=== PATIENT | male | born 1995 | race Caucasian/White ===

== ENCOUNTER 2017-05-20 17:12 | Emergency (ER) | payer SELFPAY ==
[~2017-05-20] VITALS: Ht 180.3 cm; Wt 114.0 kg
[2017-05-20 17:13] VITALS: BP 145/75
[2017-05-20] MEDS ORDERED: LIDOCAINE 1%, 20ML ONE (17:56)
[2017-05-20] MEDS ORDERED: LIDOCAINE 2%, 20ML SQ ONE (18:00)
[2017-05-20] MEDS ORDERED: IBUPROFEN 200 MG TABLET ONE (18:35)
[2017-05-20] MEDS ORDERED: IBUPROFEN 200 MG TABLET PO ONE (19:00)
== END 2017-05-20 18:45 | disposition home or self-care (01) ==
LOC: ED 18:39
DX: L03.113 Cellulitis of right upper limb (principal); L02.413 Cutaneous abscess of right upper limb; F15.10 Other stimulant abuse, uncomplicated
CPT/HCPCS: 10060; 99283; J3490

== ENCOUNTER 2017-05-22 13:05 | Emergency (ER) | payer SELFPAY | END 2017-05-22 14:35 | disposition left against medical advice (07) | LOC: ED 14:29 | DX: Z53.21 Procedure and treatment not carried out due to patient leaving prior to being seen by health care provider (principal) ==

== ENCOUNTER 2017-05-23 22:58 | Emergency (ER) | payer SELFPAY ==
[~2017-05-23] VITALS: Ht 180.3 cm; Wt 110.0 kg
[2017-05-23 22:59] VITALS: BP 174/130
== END 2017-05-24 00:27 | disposition home or self-care (01) ==
LOC: ED 23:48
DX: L02.413 Cutaneous abscess of right upper limb (principal); L03.113 Cellulitis of right upper limb
CPT/HCPCS: 99283

== ENCOUNTER 2017-05-25 13:24 | Emergency (ER) | payer SELFPAY ==
[~2017-05-25] VITALS: Ht 180.3 cm; Wt 109.5 kg
[2017-05-25 13:28] VITALS: BP 161/108
== END 2017-05-25 14:36 | disposition home or self-care (01) ==
LOC: ED 14:30
DX: L03.113 Cellulitis of right upper limb (principal); F15.10 Other stimulant abuse, uncomplicated
CPT/HCPCS: 99283

== ENCOUNTER 2017-05-27 04:02 | Emergency (ER) | payer SELFPAY ==
[~2017-05-27] VITALS: Ht 180.3 cm; Wt 116.1 kg
[2017-05-27 04:03] VITALS: BP 170/119
== END 2017-05-27 04:55 | disposition home or self-care (01) ==
LOC: ED 04:16
DX: Z48.01 Encounter for change or removal of surgical wound dressing (principal)
CPT/HCPCS: 99281

== ENCOUNTER 2019-01-23 00:23 | Emergency (ER) | payer MEDICAID ==
[~2019-01-23] VITALS: Ht 182.9 cm; Wt 112.6 kg
[2019-01-23 00:26] VITALS: BP 156/91
== END 2019-01-23 01:13 | disposition home or self-care (01) ==
LOC: ED 01:08
DX: A60.01 Herpesviral infection of penis (principal)
CPT/HCPCS: 96372; 99283; J0696

== ENCOUNTER 2019-04-05 10:35 | Emergency (ER) | payer MEDICAID ==
[~2019-04-05] VITALS: Ht 182.9 cm; Wt 122.0 kg
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
== END 2019-04-05 11:25 ==
LOC: ED 11:15
DX: R23.8 Other skin changes (principal); F17.200 Nicotine dependence, unspecified, uncomplicated
CPT/HCPCS: 99283

== ENCOUNTER 2019-04-14 17:22 | Emergency (ER) | payer MEDICAID ==
[~2019-04-14] VITALS: Ht 182.9 cm; Wt 122.1 kg
[2019-04-14 17:24] VITALS: BP 146/90
== END 2019-04-14 18:30 | disposition home or self-care (01) ==
LOC: ED 18:15
DX: B37.42 Candidal balanitis (principal); F17.200 Nicotine dependence, unspecified, uncomplicated
CPT/HCPCS: 99282

== ENCOUNTER 2019-06-16 21:27 | Emergency (ER) | payer MEDICAID ==
[~2019-06-16] VITALS: Ht 185.4 cm; Wt 128.0 kg
[2019-06-16 21:41] VITALS: BP 146/83
--- NOTE | 2019-06-16 22:50 | NUR ---
PT CALLED FOR PIT. PT NOT IN LOBBY AT THIS TIME.
--- NOTE | 2019-06-16 23:34 | NUR ---
PT CALLED FOR ROOM. NIL.
--- NOTE | 2019-06-16 23:56 | NUR ---
NILX 3
== END 2019-06-16 23:57 | disposition left against medical advice (07) ==
LOC: ED 23:46
DX: R21 Rash and other nonspecific skin eruption (principal); Z53.21 Procedure and treatment not carried out due to patient leaving prior to being seen by health care provider

== ENCOUNTER 2019-06-22 16:41 | Emergency (ER) | payer MEDICAID ==
[~2019-06-22] VITALS: Ht 182.9 cm; Wt 127.8 kg
[2019-06-22 16:48] VITALS: BP 160/92
--- NOTE | 2019-06-22 17:11 | NUR ---
URETHERAL SWAB OBTAINED SENT TO LAB FOR ANALYSIS
--- NOTE | 2019-06-22 17:22 | NUR ---
MEDICATED PER EMAR
--- NOTE | 2019-06-22 17:22 | NUR ---
LAB AT BEDSIDE
[2019-06-22] MEDS ORDERED: CEFTRIAXONE 250 MG IM ONE (18:00)
[2019-06-22] MEDS ORDERED: AZITHROMYCIN 500 MG TABLET PO ONE (18:00)
[2019-06-22] MEDS ORDERED: CEFTRIAXONE 250 MG ONE (18:04)
[2019-06-22] MEDS ORDERED: LIDOCAINE-MPF 1%, 2ML ONE (18:04)
[2019-06-22] MEDS ORDERED: AZITHROMYCIN 500 MG TABLET ONE (18:04)
== END 2019-06-22 18:34 | disposition home or self-care (01) ==
LOC: ED 18:28
DX: N48.1 Balanitis (principal); B96.89 Other specified bacterial agents as the cause of diseases classified elsewhere; F17.200 Nicotine dependence, unspecified, uncomplicated
CPT/HCPCS: 36415; 86592; 87491; 87591; 96372; 99283; J0696; J7512

== ENCOUNTER 2019-07-28 23:11 | Emergency (ER) | payer MEDICAID ==
[~2019-07-28] VITALS: Ht 182.9 cm; Wt 140.0 kg
[2019-07-28 23:15] VITALS: BP 162/105
== END 2019-07-29 00:13 | disposition home or self-care (01) ==
LOC: ED 23:31
DX: L29.9 Pruritus, unspecified (principal); L24.9 Irritant contact dermatitis, unspecified cause; F17.200 Nicotine dependence, unspecified, uncomplicated
CPT/HCPCS: 99283

== ENCOUNTER 2019-12-20 18:18 | Emergency (ER) | payer MEDICAID ==
[~2019-12-20] VITALS: Ht 182.9 cm; Wt 140.3 kg
[2019-12-20 18:22] VITALS: BP 147/78
== END 2019-12-20 19:25 | disposition home or self-care (01) ==
LOC: ED 18:48
DX: B00.2 Herpesviral gingivostomatitis and pharyngotonsillitis (principal); F17.200 Nicotine dependence, unspecified, uncomplicated
CPT/HCPCS: 99283

== ENCOUNTER 2020-02-25 15:47 | Emergency (ER) | payer MEDICAID ==
[~2020-02-25] VITALS: Ht 195.6 cm; Wt 139.0 kg
--- NOTE | 2020-02-25 16:11 | NUR ---
COPYMAN: PT TO [facility]
[2020-02-25 17:03] LABS: BASOPHILS # (AUTO) 0.03 x10^3/uL (0-0.1); BASOPHILS % (AUTO) 0 % (0-1); EOSINOPHILS # (AUTO) 0.17 x10^3/uL (0-0.4); EOSINOPHILS % (AUTO) 2 % (1-7); LYMPHOCYTES # (AUTO) 2.32 x10^3/uL (1-3.4); LYMPHOCYTES % (AUTO) 22 % (22-44); MD NO; MEAN CORPUSCULAR HEMOGLOBIN 31.4 pg (27.5-34.5); MEAN CORPUSCULAR HGB CONC 33.3 g/dL (33.2-36.2); MEAN PLATELET VOLUME 8.1 fL (7.4-10.4); MONOCYTES # (AUTO) 0.44 x10^3/uL (0.2-0.8); MONOCYTES % (AUTO) 4 % (2-9); NEUTROPHILS # (AUTO) 7.51 x10^3/uL (1.8-6.8); NEUTROPHILS % (AUTO) 72 % (42-75); PLATELET COUNT 236 x10^3/uL (130-400); RED BLOOD COUNT 5.29 x10^6/uL (4.38-5.82); RED CELL DISTRIBUTION WIDTH 12.9 % (9.4-14.8)
[2020-02-25 17:05] VITALS: BP 123/79
--- NOTE | 2020-02-25 17:05 | NUR ---
PT UPRIGHT ON GURNEY AWAKE & COMFORTABLE, WATCHING TV, RESPONDS APPROP TO STAFF, COMFORT MEASURES PROVIDED, AT BS, CALL LIGHT WITHIN REACH.
[2020-02-25 17:14] LABS: ALBUMIN 3.7 g/dL (3.4-5.0); ANION GAP 4 mmol/L (5-15); CALCIUM 8.9 mg/dL (8.5-10.1); CHLORIDE 106 mmol/L (98-107); CREATININE 0.91 mg/dL (0.7-1.3)
[2020-02-25 17:19] LABS: MICROSCOPIC NOT IND
--- NOTE | 2020-02-25 18:01 | NUR ---
PT REMAINS UPRIGHT ON GURNEY AWAKE & COMFORTABLE, WATCHING TV/TEXTING ON PHONE, RESPONDS APPROP TO STAFF, COMFORT MEASURES PROVIDED, AT BS, CALL LIGHT WITHIN REACH.
--- NOTE | 2020-02-25 18:16 | NUR ---
Patient & spouse given discharge instructions and they have confirmed that they understand the instructions. Patient ambulatory with steady gait.
== END 2020-02-25 18:17 | disposition home or self-care (01) ==
LOC: ED 18:09
DX: R10.31 Right lower quadrant pain (principal); F17.210 Nicotine dependence, cigarettes, uncomplicated
CPT/HCPCS: 36415; 80048; 81003; 82040; 85025; 99283; 99406

== ENCOUNTER 2021-03-07 21:56 | Emergency (ER) | payer MEDICAID ==
[~2021-03-07] VITALS: Ht 180.3 cm; Wt 131.0 kg
[2021-03-07 22:06] VITALS: BP 159/113
--- NOTE | 2021-03-07 22:55 | NUR ---
not in lobby when called to room
--- NOTE | 2021-03-07 23:10 | NUR ---
not in lobby when called to room
--- NOTE | 2021-03-07 23:30 | NUR ---
pt not in lobby
== END 2021-03-07 23:32 | disposition left against medical advice (07) ==
LOC: ED 22:01
DX: K13.79 Other lesions of oral mucosa (principal); Z53.21 Procedure and treatment not carried out due to patient leaving prior to being seen by health care provider